=== PATIENT | female | born 1945 | race Caucasian/White ===

== ENCOUNTER → 2019-12-29 12:26 | Outpatient (BNVA) | payer MEDICARE, SELFPAY | PROVIDERS: Family Provider Internal Medicine; PCP Internal Medicine; Referring Provider Internal Medicine; Visit Provider Internal Medicine Rheumatology | DX: M05.741 Rheumatoid arthritis with rheumatoid factor of right hand without organ or systems involvement (principal); Z79.899 Other long term (current) drug therapy; M19.90 Unspecified osteoarthritis, unspecified site; M05.742 Rheumatoid arthritis with rheumatoid factor of left hand without organ or systems involvement; M06.322 Rheumatoid nodule, left elbow; M70.21 Olecranon bursitis, right elbow; Y93.9 Activity, unspecified | CPT/HCPCS: 36415; 80076; 82306; 82565; 85651; 86140; 99214 ==

== ENCOUNTER → 2019-12-29 13:35 | Outpatient (BNVA) | payer MEDICARE, SELFPAY | PROVIDERS: Family Provider Internal Medicine; PCP Internal Medicine; Referring Provider Internal Medicine; Visit Provider Internal Medicine Rheumatology | DX: Z79.899 Other long term (current) drug therapy (principal); M05.9 Rheumatoid arthritis with rheumatoid factor, unspecified; M19.90 Unspecified osteoarthritis, unspecified site; M05.741 Rheumatoid arthritis with rheumatoid factor of right hand without organ or systems involvement; M05.742 Rheumatoid arthritis with rheumatoid factor of left hand without organ or systems involvement; M06.322 Rheumatoid nodule, left elbow; M70.21 Olecranon bursitis, right elbow | CPT/HCPCS: 85025 ==

== ENCOUNTER → 2020-06-05 09:48 | Outpatient (BNVA) | payer MEDICARE, SELFPAY | PROVIDERS: Family Provider Internal Medicine; PCP Internal Medicine; Visit Provider Internal Medicine Rheumatology | DX: M05.79 Rheumatoid arthritis with rheumatoid factor of multiple sites without organ or systems involvement (principal); M06.322 Rheumatoid nodule, left elbow; Z79.899 Other long term (current) drug therapy; Z71.89 Other specified counseling | CPT/HCPCS: 99214 ==

== ENCOUNTER 2021-05-03 09:39 | Day surgery (SDC) | payer MEDICARE, SELFPAY ==
--- NOTE | 2021-05-03 09:53 | ANES.PREANE2 ---
Pre-Anesthetic Assessment Pre-Anesthetic Assessment: Height/Weight: Height 1.57 m Weight 57.153 kg Preop Diagnosis: blood in stool Proposed Procedure: Operation Date: 05/03/21 12:00 Proposed Procedures p Colonoscopy 31688 r19.5(Not Applicable) - Jairo Queen MD Familial anesthetic complications: None Was Beta Margareth taken within 24 hours: N/A Was Clonidine taken within 24 hours: N/A Last intake: > 8 hrs Social: Social History: No alcohol and No tobacco Exam: Pre-Anes Outpt Exam: alert, oriented x 3, clear to auscultation bilaterally and regular rate & rhythm Airway: Cervical ROM: WNL MP: 4 Dentition: False and Other (implants) Additional comments: very small mouth opening, 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 Dry mouth as well. Metabolic: Metabolic: Hyperlipidemia and Thyroid Musc/skel: Musc/skel: RA (steroids within last year (but only 5 mg)) Anesthetic Plan: ASA status: 2 Anesthesia: MAC Risk of > 500 ml blood loss (7ml/kg in children): No PFSH Anesthesia PFSH: Medical History (Updated 04/28/21 @ 12:21 by Jairo Queen MD) Depression Dyslipidemia Hypothyroidism Olecranon bursitis of right elbow Rheumatoid arthritis with rheumatoid factor of multiple sites without organ or systems involvement Surgical History History of cholecystectomy History of colonoscopy 10+yrs History of hysterectomy Family History Other Arthritis Cancer Hypercholesterolemia Denies family history of Rheumatoid arthritis Lupus Social History Smoking and tobacco status: never smoked Alcohol intake: never History of recent travel: No Data Anesthesia Cardiac Studies: No Data to Display
[2021-05-03 10:09] VITALS: BP 138/67; PULSE 87; RESP 18; TEMP 36.3; O2SAT 95
[2021-05-03] MEDS: sodium chloride 0.9% 1,000 ML 30 ML IV (10:36)
--- NOTE | 2021-05-03 12:40 | W.PM.OPSUD ---
Surgery/Procedure H&P Update DATE OF PROCEDURE: May 03, 2021 DATE H&P PERFORMED: 04/27/21 H&P UPDATE INFORMATION: I have reviewed H&P completed within last 30 days, I have examined patient prior to procedure and No changes to prior documentation PREOP DIAGNOSIS: screening colonoscopy PLANNED PROCEDURE: Operation Date: 05/03/21 12:00 Proposed Procedures p Colonoscopy 89580 r19.5(Not Applicable) - Jairo Queen MD
[2021-05-03 13:05] VITALS: BP 127/57; PULSE 76; RESP 18; TEMP 36.2; O2SAT 97
[2021-05-03 13:21] VITALS: BP 148/82; PULSE 75; RESP 18; O2SAT 99
--- NOTE | 2021-05-03 15:18 | ANE.PACU2 ---
Inpatient post-anesthesia follow up: Airway intact: Yes Vital signs: Temperature 97.1 F Pulse Rate 75 Respiratory Rate 18 Blood Pressure 148/82 Pulse Oximetry 99 Oxygen Delivery Me thod Room Air Oxygen Flow Rate 3 Fraction of Inspir ed Oxygen Hydration adequate: Yes Nausea and vomiting: No Pain level: 2 Mental status: Baseline
== END 2021-05-03 13:43 | disposition home or self-care (01) ==
PROVIDERS: PCP Internal Medicine; Visit Provider Surgery
PROC: 0DJD8ZZ Inspection of Lower Intestinal Tract, Via Natural or Artificial Opening Endoscopic (ICD-10-PCS; CPT 45378; principal; 2021-05-03 12:00)
DX: Z12.11 Encounter for screening for malignant neoplasm of colon (principal); K57.30 Diverticulosis of large intestine without perforation or abscess without bleeding; D12.0 Benign neoplasm of cecum; F32.9 Major depressive disorder, single episode, unspecified; E78.5 Hyperlipidemia, unspecified; E03.9 Hypothyroidism, unspecified; M06.9 Rheumatoid arthritis, unspecified
CPT/HCPCS: 45380; 88305; 96360; 96361; J2704; J7030

== ENCOUNTER 2021-05-13 01:39 | Observation (INO) | payer MEDICARE, SELFPAY ==
[2021-05-13] VITALS (9 sets, daily range): BP systolic 96–155; BP diastolic 52–85; PULSE 77–82; RESP 16–18; TEMP 36.3–36.6; O2SAT 91–96; BMI 19.5
--- NOTE | 2021-05-13 01:43 | P.HP_ITS ---
Providers/Chief Complaint Admitting Physician: Martha Trent MD Primary Care Provider: Mack Gutierrez MD Chief Complaint: PNEUMONIA History of Present Illness Nelli Crooks is a 76 year old female presents today from [place] [facility] for chief complaint of shortness of breath and left-sided pneumonia. Patient is stating that since her colonoscopy that was done on 05/03 she has been experiencing extreme chills, fatigue and lethargy, 24 hours before her arrival in the ER she was experiencing productive cough, she was bringing up whitish sputum, she has not noticed any fever runny nose runny eyes recent sinus infection or diarrhea. She has not noticed any chest pain but gets shortness of breath on mild exertion. No sick contacts, she is up-to-date with Covid vaccination. At the outside facility chest x-ray revealed left-sided pneumonia which was evident on CTA chest as well however no PE was identified, she was given Zosyn and was transferred to our facility on patient's request. She was requiring 2 L of oxygen, she was saturating well on room air at rest however on ambulation she was desaturating to 90%. She was also anxious and required Ativan. On arrival to [facility] she was saturating well, not complaining of active chest pain or shortness of breath. Her O2 saturation was optimal on 2 L nasal cannula. Patient is stating that she is a mouth breather does not breathe well through her nose since her previous mastoid/ENT surgery. Outside facility data :white count 10, stable hemoglobin, no signs of sepsis chest x-ray revealed left-sided infiltrate. Review of Systems Const: Reports: chills, body aches and fatigue; Denies: fever(s) Eyes: Denies: change in vision ENMT: Denies: throat pain Card: Denies: chest pain Resp: Reports: dyspnea, productive cough and chest congestion GI: Denies: abdominal pain : Denies: flank pain Musc: Denies: neck pain Skin/Breast: Reports: lesions Neuro: Denies: headache(s) Psych: Reports: anxiety Endo: Denies: polyuria Kulwinder/Lymph: Denies: easy bruising All/Imm: Denies: urticaria Medications/Allergies Home Medications Medication Instructions Recorded Confirmed Last Taken Type atorvastatin 10 mg tablet 10 mg PO QDAY 12/15/19 05/01/21 05/02/21 History citalopram 40 mg tablet 20 mg PO QDAY 12/15/19 05/01/21 05/02/21 History levothyroxine 88 mcg capsule 88 mcg PO QDAY 12/15/19 05/01/21 05/02/21 History Allergies Allergy/AdvReac Type Severity Reaction Status Date / Time No Known Allergies Allergy Verified 05/01/21 13:09 PFSH Acute PFSH: Medical History Depression Dyslipidemia Hypothyroidism Olecranon bursitis of right elbow Rheumatoid arthritis with rheumatoid factor of multiple sites without organ or systems involvement Surgical History History of cholecystectomy History of colonoscopy (05/03/21) cecal polyp History of hysterectomy Family History Other Arthritis Cancer Hypercholesterolemia Denies family history of Rheumatoid arthritis Lupus Social History Smoking and tobacco status: never smoked Alcohol intake: never History of recent travel: No Physical Exam Narrative: EXAM NARRATIVE: Very pleasant and cooperative elderly female who was saturating well on 2 L nasal cannula, no active shortness of breath or chest pain Bilateral breath sounds without adventitious rhonchi or crackles S1, S2 no murmur appreciated Abdomen soft nontender bowel sound present Awake alert oriented x3 GCS 15 No lower extremity edema gangrene or ulcer Appropriate mood and affect No joint swelling EOMI, PERRLA A&P Assessment and plan (1) Left lower lobe pneumonia: Community-acquired left lower lobe pneumonia Start ceftriaxone and azithromycin Requested urine antigens CBC and BMP in the morning Check procalcitonin level Patient is up-to-date with a Covid vaccination No signs of sepsis DuoNeb every 4 as needed Home O2 evaluation Acute hypoxic respiratory failure secondary to pneumonia, repeat chest x-ray in the morning Pneumonia severity index is low Status: Acute (2) Acute respiratory failure with hypoxia: Status: Acute Additional A&P Information Hypothyroidism: Continue levothyroxine Anxiety: Continue citalopram 20 mg daily Colon biopsy revealed tubular adenoma CODE STATUS discussed with the patient: She wishes to stay DNR/DNI Cardiac diet DVT prophylaxis Lovenox Attestations Medical Necessity Statement*: Anticipating discharge within 48 hours need home O2 evaluation for community-acquired pneumonia Time Spent in Patient Care: 40mins Coding Level of Care Code Acute Home Economist Consumer Service for Stefany Fwpeter Diagnoses Left lower lobe pneumonia J18.9 Acute respiratory failure with hypoxia J96.01
[2021-05-13] MEDS: enoxaparin 40 mg/0.4 mL Syringe SUBCUT (02:27)
[2021-05-13] MEDS: cefTRIAXone 1,000 MG in sodium chloride 0.9% (plus) 50 ML 100 MG IV (02:27)
[2021-05-13 06:08] LABS: Basophils % 0.5 %; Eosinophils # 0.3 10^3/uL (0.0-0.8); Hematocrit 39.9 % (37.0-47.0); Hemoglobin 12.8 g/dL (11.5-15.3); Lymphocytes # 1.7 10^3/uL (0.8-4.8); Lymphocytes % 18.7 %; Mean Corpuscular HGB Conc 32.1 g/dL (30.0-36.0); Mean Corpuscular Hemoglobin 27.9 pg (28.0-34.0); Mean Corpuscular Volume 86.9 fL (81-99); Mean Platelet Volume 10.8 fL (7.4-10.4); Monocytes % 11.4 %; Neutrophils # 5.88 10^3/uL (1.8-7.7); Neutrophils % 66.2 %; Nucleated Red Blood Cells % 0 %; Platelet Count 229 10^3/cmm (130-400); Red Blood Count 4.59 10^6/uL (4.1-5.3); Red Cell Distribution Width 12.2 % (12.1-15.1); White Blood Count 8.9 10^3/uL (4.0-10.0)
[2021-05-13 06:30] LABS: Anion Gap 11.3 (5-19); Blood Urea Nitrogen 20 mg/dL (8-23); Calcium 8.9 mg/dL (8.5-10.5); Carbon Dioxide 26 mmol/L (22-29); Chloride 105 mmol/L (98-107); Glucose 95 mg/dL (65-115); Osmolality Calculated 288 mOsm/kg (285-295); Potassium 4.3 mmol/L (3.5-5.1); Sodium 138 mmol/L (136-145)
[2021-05-13 06:34] LABS: Procalcitonin 0.04 ng/mL (0-0.5)
[2021-05-13] MEDS: azithromycin 250 mg Tablet 500 MG PO (09:51)
[2021-05-13] MEDS: levothyroxine 88 mcg Tablet PO (09:51)
[2021-05-13] MEDS: citalopram 20 mg Tablet PO (09:51)
[2021-05-13] MEDS: atorvastatin 40 mg Tablet 20 MG PO (09:51)
--- NOTE | 2021-05-13 11:29 | PC.NURSE ---
called patient's back and gave him update and then transferred call into patient as requested.
--- NOTE | 2021-05-13 12:09 | PC.CHAP ---
Pastoral Care Encounter/Spiritual Assessment Type of Contact [] Declined terrestrial ecologist visit [] Patient/Family/Request visit [] Outpatient visit [] Follow-up visit [] Physician referral [] Code/Alert [XX] Routine visit [] Staff referral [] Actively dying [XX] Patient sleeping [] Family support [] [] Out of room [] Palliative care [] [] Receiving care in room [] Pre-surgical visit [] Trauma [] Long length of stay [] ICU visit [] Other: Relational/Emotional Strength [] Patient feels connected with others/family/visitors/staff [] Distress [] Loneliness/isolation [] Abandonment Spirituality of Patient [] Person of Shell [] Attends Gnosticism of their Shell [] Believes in Prayer [] Reads Bible or Restorationist materials [] There are Spiritual issues to be addressed Discharge Planner Interventions [] Prayer [] Active listening [] Non-anxious presence [] Spiritual/emotional support [] Crisis/trauma care [] Spiritual counseling [] Bereavement support [] Provided bereavement packet [] Provided Bible/devotional materials [] Provided toy/stuffed animal, coloring book to patient or family member [] Provided Communion [] Anointing/[place] [] Salvation [] Completed spiritual assessment [] Other: Impact on Illness or Injury [] Angry [] Fearful [] Anxious [] Often cries [] Exhaustion [] Unable to work [] Unable to attend anabaptism [] Unable to walk/stand [] Unable to read [] Unable to drive [] Unable to eat/drink [] Unable to sleep [] Unable to be with family [] Patient intubated [] Other: Summary Time spent with patient
[2021-05-13 12:58] LABS: SARS Covid-2 Antigen Negative (Negative)
--- NOTE | 2021-05-13 13:23 | PM.DCS ---
Discharge Providers Date of Admission: 05/13/21 01:39 Date of Discharge: May 13, 2021 Attending Provider at Admission: Martha Trent MD Attending Provider at Discharge: Lawrence Yoon MD Primary Care Provider: Mack Gutierrez MD Diagnoses at Discharge Discharge Diagnosis (1) Left lower lobe pneumonia: Status: Acute (2) Acute respiratory failure with hypoxia: Status: Resolved (3) Rheumatoid arthritis with rheumatoid factor of multiple sites without organ or systems involvement: Status: Acute Reason for Visit Reason for Visit: PNEUMONIA Hospital Course Hospital Course Nelli Crooks is a 76 year old female presents today from [place] [facility] for chief complaint of shortness of breath and left-sided pneumonia. Patient is stating that since her colonoscopy that was done on 05/03 she has been experiencing extreme chills, fatigue and lethargy, 24 hours before her arrival in the ER she was experiencing productive cough, she was bringing up whitish sputum, she has not noticed any fever runny nose runny eyes recent sinus infection or diarrhea. She has not noticed any chest pain but gets shortness of breath on mild exertion. No sick contacts, she is up-to-date with Covid vaccination. At the outside facility chest x-ray revealed left-sided pneumonia which was evident on CTA chest as well however no PE was identified, she was given Zosyn and was transferred to our facility on patient's request. She was requiring 2 L of oxygen, she was saturating well on room air at rest however on ambulation she was desaturating to 90%. She was also anxious and required Ativan. On arrival to [facility] she was saturating well, not complaining of active chest pain or shortness of breath. Her O2 saturation was optimal on 2 L nasal cannula. Patient is stating that she is a mouth breather does not breathe well through her nose since her previous mastoid/ENT surgery. Outside facility data :white count 10, stable hemoglobin, no signs of sepsis chest x-ray revealed left-sided infiltrate. Patient under the hospital under observation for possible community-acquired pneumonia. Patient remained afebrile hemodynamically stable during hospitalization. Hospitalization and was unremarkable. Patient remained on room air saturating 94%. Rapid COVID-19 was negative. Speech evaluation was done for further recommendation for type of diet because of patient's history of extreme dry mouth and occasional choking while eating. She is been discharged in medically stable condition on Augmentin and Levaquin for next 5 days. She is also take prednisone 40 mg daily for next 5 days. She is to follow-up with her primary care provider within next 1 week. Physical Exam Narrative: EXAM NARRATIVE: Very pleasant and cooperative elderly female who was saturating well on room air, no active shortness of breath or chest pain Bilateral breath sounds without adventitious rhonchi or crackles S1, S2 no murmur appreciated Abdomen soft nontender bowel sound present Awake alert oriented x3 GCS 15 No lower extremity edema gangrene or ulcer Appropriate mood and affect No joint swelling EOMI, PERRLA Discharge Data Data Completed and Pending: Pending at discharge Category Date Time Status XR chest 1V evelyn ble [id number] Routine Exams 05/13/21 11:38 Ordered Labs from last 24 hours 05/13/21 05/13/21 05/13/21 12:20 05:29 05:29 WBC 8.9 RBC 4.59 Hgb 12.8 Hct 39.9 MCV 86.9 MCH 27.9 L MCHC 32.1 RDW 12.2 Plt Count 229 MPV 10.8 H Neut % (Auto) 66.2 Lymph % (Auto) 18.7 [place] % (Auto) 11.4 Eos % (Auto) 3.0 Baso % (Auto) 0.5 Neut # (Auto) 5.88 Lymph # (Auto) 1.7 [place] # (Auto) 1.0 H Eos # (Auto) 0.3 Baso # (Auto) 0.0 Nucleated RBC % (a uto) 0 Nucleated RBCs # 0.0 Sodium 138 Potassium 4.3 Chloride 105 Carbon Dioxide 26 Anion Gap 11.3 BUN 20 Creatinine 0.7 GFR Calculation Not Reportable Glucose 95 Calculated Osmolal ity 288 Calcium 8.9 Procalcitonin 0.04 SARS-CoV-2 Ag (Rap id) Negative Addt'l Data from Hospital Stay: Laboratory Results WBC 8.9 10^3/uL (4.0- 10.0) 05/13/21 05:29 RBC 4.59 10^6/uL (4.1 -5.3) 05/13/21 05:29 Hgb 12.8 g/dL (11.5-1 5.3) 05/13/21 05:29 Hct 39.9 % (37.0-47.0 ) 05/13/21 05:29 MCV 86.9 fL (81-99) 05/13/21 05:29 MCH 27.9 pg (28.0-34. 0) L 05/13/21 05:29 MCHC 32.1 g/dL (30.0-3 6.0) 05/13/21 05:29 RDW 12.2 % (12.1-15.1 ) 05/13/21 05:29 Plt Count 229 10^3/cmm (130 -400) 05/13/21 05:29 MPV 10.8 fL (7.4-10.4 ) H 05/13/21 05:29 Neut % (Auto) 66.2 % 05/13/21 05:29 Lymph % (Auto) 18.7 % 05/13/21 05:29 Ventura % (Auto) 11.4 % 05/13/21 05:29 Eos % (Auto) 3.0 % 05/13/21 05:29 Baso % (Auto) 0.5 % 05/13/21 05:29 Neut # (Auto) 5.88 10^3/uL (1.8 -7.7) 05/13/21 05:29 Lymph # (Auto) 1.7 10^3/uL (0.8- 4.8) 05/13/21 05:29 Ventura # (Auto) 1.0 10^3/uL (0.2- 0.9) H 05/13/21 05:29 Eos # (Auto) 0.3 10^3/uL (0.0- 0.8) 05/13/21 05:29 Baso # (Auto) 0.0 10^3/uL (0.0- 0.1) 05/13/21 05:29 Nucleated RBC % (a uto) 0 % 05/13/21 05:29 Nucleated RBCs # 0.0 /100WBC 05/13/21 05:29 Sodium 138 mmol/L (136-1 45) 05/13/21 05:29 Potassium 4.3 mmol/L (3.5-5 .1) 05/13/21 05:29 Chloride 105 mmol/L (98-10 7) 05/13/21 05:29 Carbon Dioxide 26 mmol/L (22-29) 06/20/21 05:29 Anion Gap 11.3 (5-19) 05/13/21 05:29 BUN 20 mg/dL (8-23) 05/13/21 05:29 Creatinine 0.7 mg/dL (0.5-0. 9) 05/13/21 05:29 GFR Calculation Not Reportable 05/13/21 05:29 Glucose 95 mg/dL (65-115) 05/13/21 05:29 Calculated Osmolal ity 288 mOsm/kg (285- 295) 05/13/21 05:29 Calcium 8.9 mg/dL (8.5-10 .5) 05/13/21 05:29 Procalcitonin 0.04 ng/mL (0-0.5 ) 05/13/21 05:29 SARS-CoV-2 Ag (Rap id) Negative (Negati ve) 05/13/21 12:20 Vitals: Last Vital Signs Temp 97.7 F 05/13/21 11:36 Pulse 77 05/13/21 11:38 Resp 16 05/13/21 11:38 BP 107/65 05/13/21 11:36 Pulse Ox 94 05/13/21 11:38 Discharge Plan Discharge Patient Disposition: Home Condition: Stable Prescriptions: New Augmentin 500-125 mg tablet 1 tab PO BID 5 Days Qty: 10 RF: 0 levofloxacin 500 mg tablet 500 mg PO DAILY 5 Days Qty: 5 RF: 0 Dexilant 60 mg capsule,biphase delayed releas 60 mg PO DAILY Qty: 14 RF: 0 prednisone 20 mg tablet 20 mg PO BID 5 Days Qty: 10 RF: 0 Continued atorvastatin 10 mg tablet 10 mg PO QDAY RF: 0 levothyroxine 88 mcg capsule 88 mcg PO QDAY RF: 0 citalopram 40 mg tablet 20 mg PO QDAY RF: 0 Discharge Orders: Discharge Order (Routine); Ordered 05/13/21 Ordered By: Lawrence Yoon Referrals: Mack Gutierrez MD [Primary Care Provider] - 4-7 days Discharge Diet: As Directed Discharge Activity: Resume usual activity Patient Instructions: Opioid Safety Activity Restrictions/Additional Instructions: Please take Augmentin and Levaquin for next 5 days. Restart antibiotics for community-acquired pneumonia. Please take diet as directed as per your swallow evaluation. Please follow-up with your primary care provider within next 1 week. Discharge Attestations Time Spent in Discharge Care*: greater than 30 min Specific Discharge Activities: educating patient, discussing with pcp/other providers, discussing with transplant case manager/social workers/dc planners, documenting/other paperwork and evaluating patient/reviewing data Status at Discharge: Cognitive status at discharge: cognitively intact, Behavioral status at discharge: cooperative, Functional status at discharge: independent ambulation Overall status at discharge: patient is back to baseline Quality Metrics Clinical Quality Measures During this hospital stay, did patient experience: None Coding Level of Care Code Acute Chg FW DC note Diagnoses Left lower lobe pneumonia J18.9 Acute respiratory failure with hypoxia J96.01 Rheumatoid arthritis with rheumatoid factor of multiple sites without organ or systems involvement M05.79
--- NOTE | 2021-05-13 15:47 | PC.NURSE ---
patient given discharge instructions and verbalized understanding. patient taken to private vehicle via wheelchair by staff.
--- NOTE | 2021-05-13 16:01 | PC.NURSE ---
patient refused CXR and said she was going home prior to CXR.
== END 2021-05-13 16:00 | disposition home or self-care (01) ==
PROVIDERS: Admitting Provider Internal Medicine; PCP Internal Medicine; Visit Provider Student in an Organized Health Care Education/Training Program
DX: J18.9 Pneumonia, unspecified organism (principal); J96.01 Acute respiratory failure with hypoxia; M05.79 Rheumatoid arthritis with rheumatoid factor of multiple sites without organ or systems involvement; F32.9 Major depressive disorder, single episode, unspecified; E78.5 Hyperlipidemia, unspecified; M06.9 Rheumatoid arthritis, unspecified
CPT/HCPCS: 36415; 80048; 84145; 85025; 86403; 87426; 87449; 92610; 96372; G0378; G0379; J0696; J1650; Q0144

== ENCOUNTER → 2022-12-30 11:29 | Outpatient (BNVA) | payer MEDICARE, SELFPAY | PROVIDERS: PCP Internal Medicine; Visit Provider Internal Medicine Rheumatology | DX: M05.79 Rheumatoid arthritis with rheumatoid factor of multiple sites without organ or systems involvement (principal); Z79.899 Other long term (current) drug therapy; Z71.89 Other specified counseling; R74.01 Elevation of levels of liver transaminase levels; M25.432 Effusion, left wrist; Z85.22 Personal history of malignant neoplasm of nasal cavities, middle ear, and accessory sinuses; Z92.21 Personal history of antineoplastic chemotherapy; Z92.3 Personal history of irradiation; M19.042 Primary osteoarthritis, left hand; M19.041 Primary osteoarthritis, right hand | CPT/HCPCS: 99214 ==

== ENCOUNTER 2023-01-24 12:44 | Outpatient (CLI) | payer MEDICARE, SELFPAY ==
--- NOTE | 2023-01-24 13:45 | US_ITS ---
WS: [id number] ULTRASOUND SOFT TISSUES LEFT wrist. HISTORY: M71.339 - Other bursal cyst, unspecified wrist COMPARISON: None available. TECHNIQUE: 2-D and color Doppler imaging is submitted. Palpable area along the anterior wrist as described. There is increased soft tissue at the palpable a aguilar extending over length of 3.6 cm and transversely by 4.1 cm. Depth is 1.4 cm. Mixed echogenicity w ith mild increased vascularity. Mild displacement of the adjacent soft tissue structures. US/US soft tissue/extremity [id number] IMPRESSION: Nonspecific heterogeneous soft tissue mass corresponds to the palpable area at the wrist. Mass include rheumatoid nodule or ganglion. This may need to be furt her evaluated by MRI.
== END 2023-01-24 12:45 | disposition home or self-care (01) ==
LOC: RAD 12:50
PROVIDERS: PCP Internal Medicine; Visit Provider Internal Medicine Rheumatology
DX: M71.332 Other bursal cyst, left wrist (principal)
CPT/HCPCS: 76882

== ENCOUNTER 2023-02-14 06:41 | Outpatient (CLI) | payer MEDICARE, SELFPAY ==
--- NOTE | 2023-02-14 | CT_ITS ---
WS: [id number] EXAMINATION: CT chest w con* [id number] ORDER DATE: 02/14/2023 7:43 AM COMPARISON: None HISTORY: CHRONIC COUGH CONTRAST: 100 mL of Omnipaque 350 IV TOTAL EXAM DLP: 178.[address] scans at [facility] use at least one of these dose optimization techniques: automated e xposure control; mA and/or kV adjustment per patient size (includes targeted exams where dose is matc hed to clinical indication); or iterative reconstruction. TECHNIQUE: Multiple axial images of the chest were obtained with 2-D imaging with the administration of contrast . FINDINGS: Lungs and Central Bronchi: There is biapical pleural thickening and parenchymal scarring. There are g eneralized changes of centrilobular emphysema. There is a 3 mm subpleural nodule on axial image 48 in the left lower lobe. In the lingula adjacent to the pleura is a focal area of pleural thickening and possibly a nodule up to 7 mm in diameter in the left cardiophrenic angle on the same image. In the l eft upper lobe there is a 5 mm groundglass nodule axial image 21 Calcified granuloma in the right mid dle lobe. Pleura: within normal limits. Vessels: Atherosclerotic changes in the aorta and coronary arteries with calcification. Heart: normal size. No pericardial effusion. Mediastinum and Maggi: within normal limits. Chest Wall and Lower Neck: within normal limits. Upper Abdomen: (As visualized) previous cholecystectomy Bones: within normal limits. CT/CT chest w con* [id number] IMPRESSION: SEVERAL PULMONARY NODULES ARE IDENTIFIED. RECOMMEND FLEISCHNER CRITERIA, CENTRILOBULAR EMPHYSEMA
== END 2023-02-14 06:42 | disposition home or self-care (01) ==
PROVIDERS: Internal Medicine Rheumatology; PCP Internal Medicine; Visit Provider Internal Medicine
DX: R05.3 Chronic cough (principal); M05.9 Rheumatoid arthritis with rheumatoid factor, unspecified; Z79.899 Other long term (current) drug therapy; R91.8 Other nonspecific abnormal finding of lung field; J43.2 Centrilobular emphysema
CPT/HCPCS: 71260; 82565; Q9967

== ENCOUNTER 2023-02-26 13:49 | Outpatient (CLI) | payer MEDICARE, SELFPAY ==
--- NOTE | 2023-02-26 14:30 | MR_ITS ---
WS: [id number] EXAMINATION: MR wrist LT wo con* [id number] ORDER DATE: 02/26/2023 2:56 PM COMPARISON: None. HISTORY: R22.32 - Localized swelling, mass and lump, left upper limb CONTRAST: None. TECHNIQUE: Axial T1, axial T2 fat sat, coronal T1, coronal proton density fat sat, coronal STIR, venita nal 3D, and sagittal T1 performed. After contrast, axial T1 fat sat, coronal T1 fat sat, and sagittal T1 fat sat were performed. FINDINGS: Advanced degenerative arthritis radiocarpal junction. Widening of the scapholunate interval with SLAC wrist. The scapholunate interval widening measures 6 mm. Erosive changes involving the ulna styloid. Slight ulna minus variance. Cystic degenerative changes involving the carpal bones. Chronic tear of the TFCC. Fluid within the distal radial ulnar joint. Lobulated fluid or ganglion cysts extending baldemar ng the ulnar aspect of the wrist. Some of these may represent rheumatoid nodules. Erosive changes inv olving the base of the partially visualized metacarpals. Carpal tunnel appears normal. Tenosynovitis along the extensor carpi ulnaris. Fluid and edema along t he extensor retinaculum.Tenosynovitis involving the extensor digitorum and indices tendons and adjace nt extensor pollicis longus tendon. Tenosynovitis along the extensor carpi radialis brevis and extens or carpi radialis longus tendons. Tenosynovitis along the flexor carpal radialis tendon. Palpable marker overlying the extensor retinaculum with underlying nodule measuring 3.5 x 3.5 x 1.4 C M. This likely represents rheumatoid nodule with low signal on T1 imaging and heterogeneous signal T2 imaging. MR/MR wrist LT wo con* [id number] IMPRESSION: 1. Findings including multicompartment synovitis, distal ulna erosion, tenosyn ovitis in multiple dorsal extensor tendon compartments, and radial and ulnar fl exor bursitis compatible with rheumatoid arthritis. 2. Findings of SLAC wrist with scapholunate dissociation. 3. Palpable marker overlying the dorsal wrist corresponds to a 3.5 x 3.5 x 1.4 cm T1 signal nodule most compatible with a rheumatoid nodule. 4. Erosive changes as described above.
== END 2023-02-26 13:50 | disposition home or self-care (01) ==
LOC: RAD 13:50
PROVIDERS: PCP Internal Medicine; Visit Provider Internal Medicine Rheumatology
DX: M65.832 Other synovitis and tenosynovitis, left forearm (principal); M06.332 Rheumatoid nodule, left wrist
CPT/HCPCS: 73221

== ENCOUNTER → 2023-03-24 13:44 | Outpatient (BNVA) | payer MEDICARE, SELFPAY | PROVIDERS: PCP Internal Medicine; Visit Provider Internal Medicine Rheumatology | DX: M05.741 Rheumatoid arthritis with rheumatoid factor of right hand without organ or systems involvement (principal); M05.742 Rheumatoid arthritis with rheumatoid factor of left hand without organ or systems involvement; Z79.899 Other long term (current) drug therapy; R74.01 Elevation of levels of liver transaminase levels; M05.79 Rheumatoid arthritis with rheumatoid factor of multiple sites without organ or systems involvement; M25.432 Effusion, left wrist | CPT/HCPCS: 99214 ==

== ENCOUNTER → 2023-06-24 12:57 | Outpatient (BNVA) | payer MEDICARE, SELFPAY | PROVIDERS: PCP Internal Medicine; Visit Provider Internal Medicine Rheumatology | DX: M05.79 Rheumatoid arthritis with rheumatoid factor of multiple sites without organ or systems involvement (principal); Z79.899 Other long term (current) drug therapy; M05.741 Rheumatoid arthritis with rheumatoid factor of right hand without organ or systems involvement; M05.742 Rheumatoid arthritis with rheumatoid factor of left hand without organ or systems involvement; Z71.89 Other specified counseling; R74.01 Elevation of levels of liver transaminase levels; M25.432 Effusion, left wrist | CPT/HCPCS: 99214 ==

== ENCOUNTER → 2023-12-30 12:35 | Outpatient (BNVA) | payer MEDICARE, SELFPAY | PROVIDERS: PCP Internal Medicine; Visit Provider Internal Medicine Rheumatology | DX: M05.79 Rheumatoid arthritis with rheumatoid factor of multiple sites without organ or systems involvement (principal); Z79.899 Other long term (current) drug therapy; M05.741 Rheumatoid arthritis with rheumatoid factor of right hand without organ or systems involvement; M05.742 Rheumatoid arthritis with rheumatoid factor of left hand without organ or systems involvement; Z71.89 Other specified counseling; R74.01 Elevation of levels of liver transaminase levels; M25.432 Effusion, left wrist | CPT/HCPCS: 99214 ==

== ENCOUNTER → 2024-05-04 12:35 | Outpatient (BNVA) | payer MEDICARE, SELFPAY | PROVIDERS: PCP Internal Medicine; Visit Provider Internal Medicine Rheumatology | DX: M05.741 Rheumatoid arthritis with rheumatoid factor of right hand without organ or systems involvement (principal); M05.742 Rheumatoid arthritis with rheumatoid factor of left hand without organ or systems involvement; M05.79 Rheumatoid arthritis with rheumatoid factor of multiple sites without organ or systems involvement; M19.041 Primary osteoarthritis, right hand; M19.042 Primary osteoarthritis, left hand; M25.432 Effusion, left wrist; R74.01 Elevation of levels of liver transaminase levels; Z79.899 Other long term (current) drug therapy; Z71.85 Encounter for immunization safety counseling; Z87.891 Personal history of nicotine dependence | CPT/HCPCS: 36415; 80076; 82565; 85025; 86140; 99214 ==

== ENCOUNTER → 2025-01-24 14:59 | Outpatient (BNVA) | payer MEDICARE, SELFPAY | PROVIDERS: PCP Internal Medicine; Visit Provider Internal Medicine Rheumatology | DX: Z79.899 Other long term (current) drug therapy (principal); J18.9 Pneumonia, unspecified organism; M05.741 Rheumatoid arthritis with rheumatoid factor of right hand without organ or systems involvement; M05.742 Rheumatoid arthritis with rheumatoid factor of left hand without organ or systems involvement; Z71.89 Other specified counseling; R74.01 Elevation of levels of liver transaminase levels; M05.79 Rheumatoid arthritis with rheumatoid factor of multiple sites without organ or systems involvement; M25.432 Effusion, left wrist | CPT/HCPCS: 99214 ==